=== PATIENT | male | born 1990 | race Caucasian/White ===

== ENCOUNTER → 2022-08-07 13:22 | Outpatient (BNVA) | payer OTHER, SELFPAY | PROVIDERS: PCP Family Medicine; Visit Provider Psychiatry & Neurology Neurology | DX: M54.12 Radiculopathy, cervical region (principal); R20.2 Paresthesia of skin; R06.83 Snoring; G47.10 Hypersomnia, unspecified | CPT/HCPCS: 99202 ==

== ENCOUNTER 2022-10-16 08:01 | Outpatient (REF) | payer OTHER, SELFPAY ==
--- NOTE | ~2022-10-16 | MR_ITS ---
EXAMINATION: MR CERVICAL SPINE WITHOUT CONTRAST CLINICAL INFORMATION: Neck pain. Right shoulder and arm pain. COMPARISON: There are no prior studies available for comparison at time of dictation. TECHNIQUE: MRI of the cervical spine was obtained using routine sequences without contrast. FINDINGS: VERTEBRAL BODIES AND PARASPINAL SOFT TISSUES: There is nonspecific straightening of the normal cervical lordosis which may be positional or due to muscle spasm. Intervertebral disc height and signal are maintained. The vertebral bodies have normal height and contour and no fractures are demonstrated. Overall, marrow signal is homogenous. The regional soft tissues are unremarkable. CERVICOMEDULLARY JUNCTION AND VISUALIZED POSTERIOR FOSSA: The craniocervical and posterior fossa structures are normal. Accounting for artifact, spinal cord signal appears normal. SPINAL LEVELS: C2-C3: The facet joints appear normal bilaterally. Posterior disc contour is normal. There is no spinal cord compression or central stenosis. The neural foramina are patent bilaterally. C3-C4: The facet joints appear normal bilaterally. Posterior disc contour is normal. There is no spinal cord compression or central stenosis. The neural foramina are patent bilaterally. C4-C5: The facet joints appear normal bilaterally. Posterior disc contour is normal. There is no spinal cord compression or central stenosis. The neural foramina are patent bilaterally. C5-C6: The facet joints appear normal. There is a small soft disc protrusion posteriorly in the midline but there is no central stenosis or cord compression. The neural foramina are patent bilaterally. C6-C7: The facet joints appear normal bilaterally. Posterior disc contour is normal. There is no spinal cord compression or central stenosis. The neural foramina are patent bilaterally. C7-T1: The facet joints appear normal bilaterally. Posterior disc contour is normal. There is no spinal cord compression or central stenosis. The neural foramina are patent bilaterally. MR/MR cervical spine wo con IMPRESSION: 1. There is minimal spondylosis at C5-C6 without cord compression or central stenosis. Spinal cord signal appears normal throughout. 2. The neural foramina are patent without foraminal nerve root impingement.
== END 2022-10-16 08:02 | disposition home or self-care (01) ==
LOC: HO.MRI 08:01
PROVIDERS: PCP Family Medicine; Visit Provider Psychiatry & Neurology Neurology
DX: M54.12 Radiculopathy, cervical region (principal); M54.2 Cervicalgia; R20.2 Paresthesia of skin
CPT/HCPCS: 72141

== ENCOUNTER → 2022-11-24 07:26 | Outpatient (BNVA) | payer OTHER, SELFPAY | PROVIDERS: PCP Family Medicine; Visit Provider Psychiatry & Neurology Neurology | DX: M54.2 Cervicalgia (principal); R20.2 Paresthesia of skin; R06.83 Snoring; G47.10 Hypersomnia, unspecified | CPT/HCPCS: 99212 ==

== ENCOUNTER → 2022-12-10 08:57 | Outpatient (REF) | payer OTHER, SELFPAY | LOC: HO.SL 08:57 | PROVIDERS: PCP Family Medicine; Visit Provider Psychiatry & Neurology Neurology | DX: G47.33 Obstructive sleep apnea (adult) (pediatric) (principal); G47.10 Hypersomnia, unspecified; R06.83 Snoring | CPT/HCPCS: 95806 ==

== ENCOUNTER 2023-01-30 08:03 | Outpatient (REF) | payer OTHER, SELFPAY ==
[2023-01-30 12:40] LABS: Syphilis Screen Nonreactive (Nonreactive)
[2023-01-30 12:49] LABS: Alanine Aminotransferase 17 U/L (0-40); Albumin Level 4.7 g/dL (3.5-5.0); Alkaline Phosphatase 36 U/L (39-117); Anion Gap 16 (12-20); Aspartate Amino Transferase 16 U/L (5-37); Bilirubin Total 0.9 mg/dL (0.0-1.0); Blood Urea Nitrogen 16 mg/dL (9-16); Calcium 9.8 mg/dL (8.4-10.2); Carbon Dioxide 23 mmol/L (22-29); Chloride 103 mmol/L (96-108); Cholesterol 181 mg/dL; Estimated Glomerular Filt Rate > 60; Glucose Fasting 105 mg/dL (60-99); HDL Cholesterol 33 mg/dL; LDL Cholesterol Calculated 125 mg/dl; Sodium 138 mmol/L (135-145); Total Protein 7.6 g/dL (6.5-8.0); Triglycerides 115 mg/dL
[2023-01-30 12:51] LABS: TSH reflex Free T4 1.79 uIU/mL (0.32-4.0)
[2023-01-30 14:32] LABS: HBS Num1 > 1000.00 mIU/mL (0-7.99); HBc Num1 0.29 S/CO (0.00-0.79); HBsAGNum1 0.49 S/CO (0.00-0.99); HIV AB/AG Nonreactive (Nonreactive); HIV Num 1 0.06 S/CO (0.00-0.99); Hepatitis B Core Antibody Nonreactive (Nonreactive); Hepatitis B Surface Antigen Negative (Negative); ~Hepatitis B Surface Antibody REACTIVE (Nonreactive); ~Hepatitis C Antibody Nonreactive (Nonreactive)
== END 2023-01-30 08:04 | disposition home or self-care (01) ==
LOC: HO.WFDLDS 08:03
PROVIDERS: Visit Provider Family Medicine
DX: Z00.00 Encounter for general adult medical examination without abnormal findings (principal); Z20.2 Contact with and (suspected) exposure to infections with a predominantly sexual mode of transmission
CPT/HCPCS: 36415; 80053; 80061; 84443; 86704; 86706; 86780; 86803; 87340; 87389

== ENCOUNTER 2023-01-30 09:01 | Outpatient (REF) | payer OTHER, SELFPAY ==
[2023-01-30 13:44] LABS: Influenza A PCR NEGATIVE (Negative); Influenza B PCR NEGATIVE (Negative); Resp Syncy Virus RNA Qual PCR NEGATIVE (Negative); SARS COV2 PCR INHOUSE NEGATIVE (Negative)
== END 2023-01-30 09:02 | disposition home or self-care (01) ==
LOC: HO.LAB 09:01
PROVIDERS: Visit Provider Nurse Practitioner Family
DX: J06.9 Acute upper respiratory infection, unspecified (principal)
CPT/HCPCS: 0241U

== ENCOUNTER → 2023-02-19 11:29 | Outpatient (BNVA) | payer OTHER, SELFPAY | PROVIDERS: PCP Family Medicine; Visit Provider Nurse Practitioner Family | DX: M54.2 Cervicalgia (principal); M54.12 Radiculopathy, cervical region; M79.601 Pain in right arm; R20.2 Paresthesia of skin; G47.33 Obstructive sleep apnea (adult) (pediatric) | CPT/HCPCS: 99212 ==

== ENCOUNTER 2023-05-26 10:00 | Outpatient (AMB) | payer OTHER, SELFPAY ==
--- NOTE | 2023-05-26 10:07 | MHC.OFFVIS ---
Intake Vital Signs 05/26/23 10:12 Height 5 ft 8 in Weight 180 lb 2 oz BMI 27.4 BP 171/115 H Blood Pressure Location Rt brachial Position Sitting Pulse 112 H Pulse Source Pulse Oximeter Pulse Oximetry (%) 99 Oxygen Delivery Method Room Air Intake Visit Reasons: Pain in Right Arm/ Cervicalgia/ LVM Intake Note: Pain today 09/09. Second Cutter Required: No Accompanied by: Self / Same As Patient Allergies trazodone Allergy (Severe, Verified 05/26/23 10:11) pass out HPI Pain in Right Arm/ Cervicalgia/ LVM HPI Details Patient is a 32 years old male with prior history of ADHD, Right 3rd finger tendon repair, JAMES on CPAP, cervicalgia presents today for initial evaluation of neck pain with radiation symptoms into his right upper extremity. 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 His neck pain radiates into his right shoulder and right arm with tingling in his right 4th and 5th fingers and mild weakness, especially with right elbow flexion. Patientinitially tried to manage his pain with Tylenol, Flexeril and gabapentin with partial symptom relief. Reports rarely using Flexeril and gabapentin due to drowsiness. He completed physical therapy 15 sessions and tried TENS unit with no improvement. At rest, his pain is minimal but easily aggravated with any activities, movements, walking, running. Patient reports his sleep is moderately disrupted due to pain. Previous right upper extremity and cervical spine xray imaging were completed at [facility], these reports are not available today. Cervical spine MRI is noted for minimal spondylosis at C5-C6 without cord compression or central stenosis. Denies any fever, chills, weight loss, visual disturbances, dizziness, chest pain, shortness of breaths, gait imbalances, bladder or bowel dysfunction or saddle anesthesia. Neck Disability Index score: 14 / 50 = 28.0 % (Mild Disability) Currently rates pain at 1/10 Location Right side of neck radiates down shoulder and arm Duration Gradually worsening over the past year Characteristics of symptom or complaint Burning, tightness, tingling, stabbing, sharp Aggravating or associated factors Lifting, running, working out, movements Relieving factors Tylenol, cyclobenzaprine, gabapentin Treatment PT, TENS unit- no improvement [facility] Medical History ADHD Surgical History Status post tendon repair Social History Housing: House Alcohol intake: current Alcohol intake frequency: holidays/special occasions only Patient Tobacco Use Status: Never used Tobacco e-Cigarette/Vaping Use: Never Used Second Hand Smoke Exposure: No Current occupational status: employed Current occupational exposures/hazards: No Cognitive needs: No Hearing needs: No Vision needs: No Review of Systems Const All systems reviewed & are unremarkable except as noted in HPI and below Physical Exam Vital Signs: Last Vital Signs Pulse 112 H 05/26/23 10:12 BP 171/115 H 05/26/23 10:12 Pulse Ox 99 05/26/23 10:12 Oxygen Delivery Method Room Air 05/26/23 10:12 BMI result Body Mass Index 27.4 General: Appears afebrile. Alert and oriented. Mood and affect appropriate. Follows and participates in conversation appropriately. Respiratory effort is unlabored. No cough. No nasal discharge. Able to transition from sit to stand unassisted. Ambulates with bilaterally normal heel strike and toe off. Neck Other: Limited cervical ROM with right lateral rotation and bending. Reports increased pain with cervical extension and stretching sensations in right trapezius with flexion. Spurling compression test negative. Pain is unchanged by Spurling maneuver with retraction. Elvey's tension test negative bilaterally. Reports paresthesias in medial aspects of right forearm and tingling in 4th and 5th fingers on the right with elbow flexion. Lhermitte's test was negative. DTR intact, +2 and symmetrical. Patient demonstrated 5/5 left and 4/5 right motor strength of bilateral upper extremities. 2 + radial pulses. Bilateral shoulders with full ROM. Significant tightness throughout right upper trapezius and levator muscles as well as TTP throughout bilateral upper and middle trapezius muscles. No paravertebral tenderness over facet joint on affected side. Multiple taut bands palpated throughout bilateral upper trapezius muscles. Neck: Yes normal visual inspection, Yes no lymphadenopathy, Yes no meningeal signs, Yes supple, No anterior neck swelling, Yes no JVD and No prominent dorsocervical fat pad Back/Spine/Pelvis Cervical Spine: cervical muscular tenderness, pain with cervical ROM, No Cervical spine scars present, cervical spasm, No Cervical spine tenderness and No step off deformity Thoracic/Lumbar Spine: thoracic and lumbar spine normal to inspection, Thoracic/lumbar spine scar(s), thoraco-lumbar ROM normal, No thoracic spinal tenderness and No lumbar spinal tenderness Neuro Other: Bob?s negative bilaterally. Clonus was negative. Gait is non-antalgic without loss of balance. Patient was able to perform heel walk and toe walk. General: no meningeal signs Cognition (Neuro): normal cognition Motor exam (neuro): no tremor noted and Motor abnormalities not present Results Reviewed Results Reviewed: MR CERVICAL SPINE WITHOUT CONTRAST 10/16/22 CLINICAL INFORMATION: Neck pain. Right shoulder and arm pain. COMPARISON: There are no prior studies available for comparison at time of dictation. TECHNIQUE: MRI of the cervical spine was obtained using routine sequences without contrast. FINDINGS: VERTEBRAL BODIES AND PARASPINAL SOFT TISSUES: There is nonspecific straightening of the normal cervical lordosis which may be positional or due to muscle spasm. Intervertebral disc height and signal are maintained. The vertebral bodies have normal height and contour and no fractures are demonstrated. Overall, marrow signal is homogenous. The regional soft tissues are unremarkable. CERVICOMEDULLARY JUNCTION AND VISUALIZED POSTERIOR FOSSA: The craniocervical and posterior fossa structures are normal. Accounting for artifact, spinal cord signal appears normal. SPINAL LEVELS: C2-C3: The facet joints appear normal bilaterally. Posterior disc contour is normal. There is no spinal cord compression or central stenosis. The neural foramina are patent bilaterally. C3-C4: The facet joints appear normal bilaterally. Posterior disc contour is normal. There is no spinal cord compression or central stenosis. The neural foramina are patent bilaterally. C4-C5: The facet joints appear normal bilaterally. Posterior disc contour is normal. There is no spinal cord compression or central stenosis. The neural foramina are patent bilaterally. C5-C6: The facet joints appear normal. There is a small soft disc protrusion posteriorly in the midline but there is no central stenosis or cord compression. The neural foramina are patent bilaterally. C6-C7: The facet joints appear normal bilaterally. Posterior disc contour is normal. There is no spinal cord compression or central stenosis. The neural foramina are patent bilaterally. C7-T1: The facet joints appear normal bilaterally. Posterior disc contour is normal. There is no spinal cord compression or central stenosis. The neural foramina are patent bilaterally. IMPRESSION: 1. There is minimal spondylosis at C5-C6 without cord compression or central stenosis. Spinal cord signal appears normal throughout. 2. The neural foramina are patent without foraminal nerve root impingement. Assessment & Plan Assessment & Plan (1) Right upper limb pain: Code(s): M79.601 - Pain in right arm (2) Arm paresthesia, right: Code(s): R20.2 - Paresthesia of skin (3) Muscle spasm: Code(s): M62.838 - Other muscle spasm (4) Cervical spondylosis: Code(s): M47.812 - Spondylosis without myelopathy or radiculopathy, cervical region (5) Cervical radiculopathy: Code(s): M54.12 - Radiculopathy, cervical region Plan 1. Script faxed to [facility] for TENS unit. Informational pamphlet provided to patient. 2. Neurodiagnostic studies to further evaluate right upper arm weakness with paresthesias and rule out Cubital Tunnel Syndrome. 3. Patient will discontinue Flexeril (cyclobenzaprine) and start methocarbamol. Side effects and precautions reviewed. 4. Encouraged good posture, avoiding heavy lifting, adequate hydration, sleep hygiene, ice/heat therapy, continue Tylenol, NSAIDs and muscle relaxant as needed. 5. Work Memorandum note completed at patient's request. All questions and concerns have been answered and patient agreed with the plan. Follow up for EMG/NVC studies and sooner as needed. Orders: Orders NE nerve conduction velocity 05/26/23 M54.12 - Radiculopathy, cervical region, M79.601 - Pain in right arm, R20.2 - Paresthesia of skin NE electromyogram (EMG) 05/26/23 M54.12 - Radiculopathy, cervical region, M79.601 - Pain in right arm, R20.2 - Paresthesia of skin Medications: New methocarbamol 500 mg PO Q8H 30 days PRN 90 tabs 0RF muscle spasms M54.12 - Radiculopathy, cervical region, M62.838 - Other muscle spasm, R20.2 - Paresthesia of skin Discontinued cyclobenzaprine Discontinued Reason: Patient Completed Course 5 mg PO BEDTIME 30 days PRN 30 tabs 2RF muscle spasm Coding Level of Care Code New Pt Level 4 (59603) Diagnoses Right upper limb pain M79.601 Arm paresthesia, right R20.2 Muscle spasm M62.838 Cervical spondylosis M47.812 Cervical radiculopathy M54.12
[2023-05-26 10:12] VITALS: BP 171/115; PULSE 112; O2SAT 99; BMI 27.4
== END 2023-05-26 10:43 | disposition home or self-care (01) ==
PROVIDERS: PCP Family Medicine; Visit Provider Nurse Practitioner Family
DX: M79.601 Pain in right arm (principal); R20.2 Paresthesia of skin; M62.838 Other muscle spasm; M47.812 Spondylosis without myelopathy or radiculopathy, cervical region; M54.12 Radiculopathy, cervical region
CPT/HCPCS: 99204

== ENCOUNTER → 2023-05-26 10:00 | Outpatient (BNVA) | payer OTHER, SELFPAY | PROVIDERS: PCP Family Medicine; Visit Provider Nurse Practitioner Family ==

== ENCOUNTER 2023-08-12 08:45 | Outpatient (REF) | payer BC, SELFPAY ==
--- NOTE | 2023-08-12 08:52 | EMG_ITS ---
Please see scanned EMG / Nerve Conduction Report. MTDD
== END 2023-08-12 08:46 | disposition home or self-care (01) ==
LOC: HO.NEURO 08:45
PROVIDERS: PCP Family Medicine; Visit Provider Nurse Practitioner Family
DX: M79.601 Pain in right arm (principal); R20.2 Paresthesia of skin; M54.12 Radiculopathy, cervical region
CPT/HCPCS: 95885; 95910

== ENCOUNTER 2023-08-20 08:59 | Outpatient (AMB) | payer BC, SELFPAY ==
--- NOTE | 2023-08-20 09:06 | A.OFFVIS_ITS ---
Intake Vital Signs 08/20/23 09:07 Height 5 ft 8 in Weight 168 lb 2 oz BMI 25.6 BP 130/78 Blood Pressure Location Lt brachial Position Sitting Respiration 16 Pulse 101 H Pulse Source Pulse Oximeter Pulse Oximetry (%) 99 Oxygen Delivery Method Room Air Intake Visit Reasons: 6 mnts f/u for sleep - LVM Intake Note: Pt reoprts to the office for a 6 month follow up for sleep disturbance. Stippler Required: No Allergies trazodone Allergy (Severe, Verified 08/20/23 09:06) pass out HPI HPI Comments History of Present Illness Details 33 y/o male patient presents for follow up?of right upper extremity pain and JAMES. Pt reports that neck pain, right shoulder, arm pain has not improved with gapapentin, cyclobenzaprine or physical therapy. He stopped using gabapentin and cyclobenzaprine due to drowsiness. He completed physical therapy 15 sessions and tried TENS unit with no improvement. The EMG result shows normal motor and sensory nerve conduction study of right upper extremity with no evidence of carpal tunnel syndrome or ulnar nerve entrapment. Normal EMG of right C5-T1 innervated muscles. The home sleep study result was significant for mild degree of sleep apnea. He started APAP at [id number]. However, he is not compliant with CPAP. Patient reports his sleep is moderately disrupted due to pain. [facility], [facility] Medical History ADHD Surgical History Status post tendon repair Social History Housing: House Alcohol intake: current Alcohol intake frequency: holidays/special occasions only Patient Tobacco Use Status: Never used Tobacco e-Cigarette/Vaping Use: Never Used Second Hand Smoke Exposure: No Current occupational status: employed Current occupational exposures/hazards: No Cognitive needs: No Hearing needs: No Vision needs: No Review of Systems Const All systems reviewed & are unremarkable except as noted in HPI and below Physical Exam Vital Signs: Last Vital Signs Pulse 101 H 08/20/23 09:07 Resp 16 08/20/23 09:07 BP 130/78 08/20/23 09:07 Pulse Ox 99 08/20/23 09:07 Oxygen Delivery Method Room Air 08/20/23 09:07 BMI result Body Mass Index 25.6 Const General: cooperative, healthy appearing, comfortable and no acute distress Nutritional Appearance: average body habitus Orientation/consciousness: patient oriented x3 Limitations: no limitations HEENT Head: Yes normal to inspection, Yes No palpable skull fracture present, Yes normocephalic and Yes atraumatic Eyes Pupils: Equal, round and reactive pupils present Neck Other: tightness of right scalene and levator Neuro General: patient oriented x3, tone normal, moves all extremities, no focal motor deficits and normal sensation to monofilament Cranial nerves: Yes CN's II-XII intact bilaterally, Yes Facial sensation intact/muscles of mastication intact, Yes Equal, round and reactive pupils present, Yes Bilaterally intact EOM present, Yes Nystagmus not present, Yes Normal facial strength present, Yes Midline tongue present, Yes Symmetric palate elevation present and Yes Ability to bilaterally elevate shoulders present Cognition (Neuro): normal cognition Gait exam (Neuro): Normal gait present Motor exam (neuro): 5/5 motor strength present throughout and Normal motor muscle tone present throughout Psych Appearance: grossly normal Assessment & Plan Assessment & Plan (1) Cervicalgia: Comment: tight levator on right Code(s): M54.2 - Cervicalgia (2) Right upper limb pain: Code(s): M79.601 - Pain in right arm (3) JAMES (obstructive sleep apnea): Code(s): G47.33 - Obstructive sleep apnea (adult) (pediatric) Plan Continue to follow up with pain management. Advised patient to continue to use APAP [id number]. Stressed compliance, use CPAP nightly and more than 4 hours. Advised patient to try Calm Sleep supplement, and magnesium glycinate 200-400 mg qHS. Coding Level of Care Code Est Pt Level 4 (68374) Diagnoses Cervicalgia M54.2 Right upper limb pain M79.601 JAMES (obstructive sleep apnea) G47.33
[2023-08-20 09:07] VITALS: BP 130/78; PULSE 101; RESP 16; O2SAT 99; BMI 25.6
== END 2023-08-20 09:27 | disposition home or self-care (01) ==
PROVIDERS: PCP Family Medicine; Visit Provider Nurse Practitioner Family
DX: M54.2 Cervicalgia (principal); M79.601 Pain in right arm; G47.33 Obstructive sleep apnea (adult) (pediatric)
CPT/HCPCS: 99214

== ENCOUNTER → 2023-08-20 08:59 | Outpatient (BNVA) | payer BC, SELFPAY | PROVIDERS: PCP Family Medicine; Visit Provider Nurse Practitioner Family ==